=== PATIENT | male | born 1955 | race African-American/Black ===

== ENCOUNTER 2019-03-17 09:57 | Observation (INO) ==
[2019-03-17 10:40] LABS: INR 0.9; PT Patient Result 9.6 SECS
[2019-03-17 10:47] LABS: Alanine Aminotransferase 13 U/L (16-61); Alkaline Phosphatase 57 U/L (45-117); Aspartate Amino Transferase 12 U/L (0-37); Bilirubin,Total < 0.39 MG/DL (0.2-1.0); Blood Urea Nitrogen 27 MG/DL (7-18); Calcium 8.2 MG/DL (8.5-10.1); Glucose 123 MG/DL (74-106); Osmolality,Calculated 295.6 MOS/KG (273-304); Troponin I 0.022 NG/ML (0.00-0.045)
[2019-03-17 11:07] LABS: Basophils # 0.1 10*3/uL (0.0-0.2); Basophils % 1.6 % (0.0-0.8); Eosinophils # 0.2 10*3/uL (0.0-0.87); Eosinophils % 4.5 % (0.00-10.9); Hematocrit 36.3 VOL% (42.0-52.0); Hemoglobin 10.6 GM/DL (14.0-18.0); Immature Granulocytes % 0.3 %; Immature Granulocytes Absolute 0.01 #; Lymphocytes % 25.2 % (21.2-54.2); Mean Corpuscular HGB Conc 29.2 GM/DL (32-36); Mean Corpuscular Volume 75.8 FL (87-102); Monocytes % 6.4 % (1.7-12.7); Platelet Count 197 T/CUMM (130-400); Red Blood Count 4.79 MC/CUMM (3.8-5.5); Red Cell Distribution Width 15.7 % (9.3-17.3); White Blood Count 3.8 T/CUMM (4-12)
[2019-03-17 11:30] LABS: Platelet Estimate Normal
[2019-03-17 11:31] LABS: Anisocytosis Slight; Ovalocytes Few; Poikilocytosis Slight
[2019-03-17 12:11] LABS: Apearance,Urine CLEAR (Clear); Bilirubin,Urine Negative (Negative); Blood, Urine Negative (Negative); Glucose,Urine (UA) Negative (Negative); Ketones,Urine Negative (Negative); Mucus,Urine Occasional /LPF (Occasional); Nitrite,Urine Negative (Negative); Protein,Urine Negative; RBC,Urine 1 /HPF (0-4); Squamous Epithelial Cell,Urine Occasional /HPF (0-10); Urine Color Straw (Yellow); Urine Specific Gravity 1.032 (1.001-1.035); Urine Urobilinogen < 2.0 EU/DL (0.2-1.0); WBC,Urine 2 /HPF (0-6)
[2019-03-17 12:20] LABS: Barbiturates Screen,Urine Negative (Negative); Benzodiazepines Screen,Urine Negative (Negative); Cannabinoid Screen,Urine Negative (Negative); Opiate Screen,Urine Negative (Negative); Phencyclidine Screen,Urine Negative (Negative)
[2019-03-17] MEDS ORDERED: ASPIRIN EC 325 MG TABLET PO ONE (13:04)
[2019-03-17] MEDS ORDERED: ACETAMINOPHEN 325 MG TABLET PO PRN (13:04)
[2019-03-17] MEDS ORDERED: NICOTINE 21 MG/24 HR PATCH TRANSDERM PRN (13:04)
[2019-03-17] MEDS ORDERED: LORazepam 1 MG TABLET PO PRN (13:17)
[2019-03-17] MEDS ORDERED: ENOXAPARIN 40 MG/0.4 ML SYRINGE SUBCUT SCH (13:30)
[2019-03-17 13:40] LABS: Risk Ratio 2.8; Thyroid Stimulating Hormone 0.554 uIU/ml (0.358-3.74); VLDL CHOLESTEROL 10.8 MG/DL
[2019-03-17 14:14] LABS: Folate 13.2 NG/ML (5.4-24.0)
[2019-03-17] MEDS: SODIUM CHLORIDE 0.45% 1,000 ML IV SCH (17:15)
[2019-03-17] MEDS: FOLIC ACID 1 MG TABLET PO SCH (17:15)
[2019-03-17] MEDS: amLODIPine 5 MG TABLET PO SCH (17:16)
[2019-03-17] MEDS: MULTIVITAMIN (CENTRUM) TABLET PO SCH (17:16)
[2019-03-17] MEDS: THIAMINE 100 MG TABLET PO SCH (17:16)
[2019-03-17] MEDS: ATORVASTATIN 40 MG TABLET PO SCH (17:16)
[2019-03-18] MEDS: SODIUM CHLORIDE 0.45% 1,000 ML IV SCH (03:04)
[2019-03-18 04:30] LABS: Alanine Aminotransferase 14 U/L (16-61); Albumin 3.2 G/DL (3.4-5.0); Alkaline Phosphatase 57 U/L (45-117); Aspartate Amino Transferase 12 U/L (0-37); Bilirubin,Total < 0.39 MG/DL (0.2-1.0); Blood Urea Nitrogen 26 MG/DL (7-18); Calcium 8.4 MG/DL (8.5-10.1); Glucose 97 MG/DL (74-106)
[2019-03-18 04:31] LABS: Osmolality,Calculated 287.1 MOS/KG (273-304)
[2019-03-18 04:55] LABS: Basophils % 0.9 % (0.0-0.8); Eosinophils # 0.2 10*3/uL (0.0-0.87); Eosinophils % 4.1 % (0.00-10.9); Hematocrit 37.7 VOL% (42.0-52.0); Immature Granulocytes % 0.6 %; Immature Granulocytes Absolute 0.03 #; Lymphocytes # 1.6 10*3/uL (1.4-4.0); Lymphocytes % 34.2 % (21.2-54.2); Mean Corpuscular HGB Conc 29.2 GM/DL (32-36); Mean Corpuscular Volume 76.3 FL (87-102); Monocytes % 5.6 % (1.7-12.7); Neutrophils % 54.6 % (38.7-73.9); Platelet Count 164 T/CUMM (130-400); Red Blood Count 4.94 MC/CUMM (3.8-5.5); Red Cell Distribution Width 15.9 % (9.3-17.3); White Blood Count 4.6 T/CUMM (4-12)
[2019-03-18 05:13] LABS: Platelet Estimate Decreased
[2019-03-18 05:14] LABS: Polychromasia Few
[2019-03-18 08:17] VITALS: BP 150/79
[2019-03-18] MEDS ORDERED: PANTOPRAZOLE 40 MG TABLET PO SCH (09:00)
[2019-03-18] MEDS ORDERED: ASPIRIN EC 81 MG TABLET PO SCH (09:00)
[2019-03-18] MEDS: FOLIC ACID 1 MG TABLET PO SCH (09:52)
[2019-03-18] MEDS: ATORVASTATIN 40 MG TABLET PO SCH (09:52)
[2019-03-18] MEDS: MULTIVITAMIN (CENTRUM) TABLET PO SCH (09:53)
[2019-03-18] MEDS: amLODIPine 5 MG TABLET PO SCH (09:53)
[2019-03-18] MEDS: THIAMINE 100 MG TABLET PO SCH (09:55)
== END 2019-03-18 10:32 | disposition home or self-care (01) ==
LOC: EDBD → EDUNIT# → N.EDINP 09:57 → N.ED 09:57 → N.4E 14:57
PROVIDERS: ADMIT Emergency Medicine; ATTEND Emergency Medicine